=== PATIENT | female | born 1990 | race Caucasian/White ===

== ENCOUNTER 2022-10-07 11:17 | Outpatient (OUT) | payer BC, OTHER, SELFPAY ==
--- NOTE | 2022-10-07 12:05 | PM.PRESUREVA ---
History of Present Illness History of Present Illness Chief complaint: pelvic pain, endometrosis Narrative: Patient presents for preadmission testing accompanied by family. The patient states she has endometriosis and chronic pelvic pain. She denies nausea, vomiting, fever, dysuria, or hematuria. Review of Systems ROS Narrative REVIEW OF SYSTEMS: Negative except as stated in HPI, ten or more systems reviewed. Constitutional: No fever , chills, weakness ENT: No sore throat or epistaxis Cardiovascular: No edema, chest pain, palpitations, or activity intolerance Respiratory: No shortness of breath, cough, or wheezing Musculoskeletal: No joint pain or swelling Genitourinary: No dysuria or hematuria Neurological: No numbness, tingling, weakness, or headache Psychiatric: No mood changes PFSH PFS Medical History (Updated 10/07/22 @ 12:04 by Quita Wiggins NP) Surgical History (Updated 10/07/22 @ 11:52 by Quita Wiggins NP) Family History (Updated 10/07/22 @ 11:52 by Quita Wiggins NP) Other Family history of diabetes mellitus Family history of heart disease Family history of hypertension Family history of kidney cancer Family history of myocardial infarction Family history of stroke Social History (Updated 10/07/22 @ 11:45 by Quita Wiggins NP) Within the past year, how often did you have a drink containing alcohol: never Score interpretation: A score less than 3 is consistent with normal alcohol consumption. Smoking status: Never smoker Non-prescribed substance use: denies use and former substance user Previous occupational history: factory Highest level of school completed/degree received: high school graduate Meds Home Medications and Allergies Home Medications Medication Instructions Recorded Confirmed Type acetaminophen 300 mg-codeine 30 mg 1 tab PO Q8H PRN pain 10/07/22 10/07/22 History tablet buprenorphine 8 mg-naloxone 2 mg 0.5 film sublingual BID 10/07/22 10/07/22 History sublingual film liraglutide 0.6 mg/0.1 mL (18 mg/3 0.6 mg subcut Q24H 10/07/22 10/07/22 History mL) subcutaneous pen injector (Victoza 2-Joesph) mirtazapine 15 mg tablet 15 mg PO QPM PRN sleep 10/07/22 10/07/22 History olanzapine 2.5 mg tablet (Zyprexa) 2.5 mg PO DAILY 10/07/22 10/07/22 History ondansetron 4 mg disintegrating 4 mg PO Q8H PRN nausea and vomiting 10/07/22 10/07/22 History tablet quetiapine 50 mg tablet 50 mg PO QPM PRN sleep 10/07/22 10/07/22 History venlafaxine 37.5 mg 37.5 mg PO QDAY 10/07/22 10/07/22 History capsule,extended release 24 hr venlafaxine 75 mg capsule,extended 75 mg PO QDAY 10/07/22 10/07/22 History release 24 hr Allergies Allergy/AdvReac Type Severity Reaction Status Date / Time No Known Drug Allergies Allergy Verified 10/07/22 11:32 Exam Narrative Exam Narrative: Constitutional: Awake, alert, comfortable, well-appearing, nontoxic, interactive, vital signs as charted Head: Normocephalic, atraumatic Neck: Supple, normal appearance, normal range of motion, no meningeal signs, no lymphadenopathy Respiratory: No respiratory distress, breath sounds clear Cardiovascular: Regular rate and rhythm, strong and regular heart tones Abdomen: Nontender, normal bowel sounds, soft, no CVA tenderness Musculoskeletal: Normal gait, no swelling or edema Skin: No rashes or induration, no lesions, only visible skin inspected Neuro: No neurological deficits, normal sensation Psychiatric: Oriented ?3, normal affect Assessment and Plan Assessment and Plan (1) Dysmenorrhea: (2) Endometriosis: (3) Pelvic pain: Plan Da Tin-assisted laparoscopic hysterectomy, possible exploratory laparotomy, possible bilateral salpingo-oophorectomy, possible cystoscopy scheduled with Dr. Anderson 10/22/2022.
[2022-10-07 12:25] LABS: Basophils Percent Auto 0.4 % (0.2-2.0); Eosinophils Absolute Auto 0.2 10^3/uL (0.0-0.7); Eosinophils Percent Auto 2.8 % (0.9-7.0); Hematocrit 38.1 % (36.0-48.0); Immature Granulocytes Abs Auto 0.02 10^3/uL (0.00-0.03); Immature Granulocytes Pct Auto 0.3 % (0.0-0.5); Lymphocytes Absolute Auto 1.6 10^3/uL (1.2-3.8); Lymphocytes Percent Auto 21.9 % (20.5-60.0); Mean Corpuscular HGB Conc 31.5 g/dL (29.9-35.2); Monocytes Absolute Auto 0.7 10^3/uL (0.3-0.8); Monocytes Percent Auto 9.6 % (1.7-12.0); Neutrophils Absolute Auto 4.7 10^3/uL (1.4-6.5); Platelet Count 353 10^3/uL (150-450); Red Blood Count 5.01 10^6/uL (4.20-5.40); Red Cell Distribution Width 15.6 % (11.0-15.0); White Blood Count 7.2 10^3/uL (4.0-11.0)
[2022-10-07 12:45] LABS: INR 0.97; Partial Thromboplastin Time 28.7 sec (22.3-36.2); Prothrombin Time 10.3 sec (9.0-11.6)
[2022-10-07 13:25] LABS: Alanine Aminotransferase 32 U/L (14-59); Albumin Level 3.9 g/dL (3.4-5.0); Alkaline Phosphatase 62 U/L (46-116); Anion Gap 11.5; Aspartate Amino Transferase 22 U/L (15-37); BUN Creatinine Ratio 9.3; Bilirubin Direct 0.1 mg/dL (0.0-0.2); Bilirubin Total 0.3 mg/dL (0.2-1.0); Calcium 8.9 mg/dL (8.5-10.1); Carbon Dioxide 29.5 mmol/L (21.0-32.0); Chloride 103 mmol/L (98-107); Estimated GFR (African America >60 (>=60); Estimated GFR (Non-African Ame >60 (>=60); Glucose 96 mg/dL (74-106); Sodium 140 mmol/L (136-145); Total Protein 7.9 g/dL (6.4-8.2)
== END 2022-10-07 11:18 | disposition home or self-care (01) ==
PROVIDERS: Visit Provider Obstetrics & Gynecology
DX: Z01.812 Encounter for preprocedural laboratory examination (principal); N80.9 Endometriosis, unspecified; R10.2 Pelvic and perineal pain; N94.6 Dysmenorrhea, unspecified
CPT/HCPCS: 80048; 80076; 85025; 85610; 85730; 86850; 86900; 86901; G0463

== ENCOUNTER 2022-10-20 10:48 | Outpatient (OUT) | payer BC, OTHER, SELFPAY | END 2022-10-20 10:49 | disposition home or self-care (01) | LOC: LAB 10-28 10:48 | PROVIDERS: Visit Provider Obstetrics & Gynecology | DX: Z01.812 Encounter for preprocedural laboratory examination (principal); N80.9 Endometriosis, unspecified; R10.2 Pelvic and perineal pain; N94.6 Dysmenorrhea, unspecified | CPT/HCPCS: 36415; 86850; 86900; 86901 ==

== ENCOUNTER 2022-10-22 11:11 | Day surgery (SDC) | payer BC, OTHER, SELFPAY ==
[2022-10-07 12:02] VITALS: BP 106/66; PULSE 70; RESP 18; TEMP 36.4; O2SAT 96; BMI 40.8
[2022-10-22] VITALS (11 sets, daily range): BP systolic 78–130; BP diastolic 43–70; PULSE 62–86; RESP 14–26; TEMP 36.2–36.7; O2SAT 90–100; BMI 40.4
[2022-10-22 11:19] LABS: Basophils Percent Auto 0.4 % (0.2-2.0); Eosinophils Absolute Auto 0.2 10^3/uL (0.0-0.7); Eosinophils Percent Auto 1.6 % (0.9-7.0); Hematocrit 40.2 % (36.0-48.0); Hemoglobin 12.4 g/dL (12.0-16.0); Immature Granulocytes Abs Auto 0.03 10^3/uL (0.00-0.03); Immature Granulocytes Pct Auto 0.3 % (0.0-0.5); Lymphocytes Absolute Auto 1.6 10^3/uL (1.2-3.8); Lymphocytes Percent Auto 17.3 % (20.5-60.0); Mean Corpuscular HGB Conc 30.8 g/dL (29.9-35.2); Mean Corpuscular Volume 77.9 fL (81.0-99.0); Mean Platelet Volume 8.9 fL (9.5-13.5); Monocytes Absolute Auto 0.6 10^3/uL (0.3-0.8); Monocytes Percent Auto 6.3 % (1.7-12.0); Neutrophils Absolute Auto 6.9 10^3/uL (1.4-6.5); Neutrophils Percent Auto 74.1 % (43.0-75.0); Platelet Count 432 10^3/uL (150-450); Red Blood Count 5.16 10^6/uL (4.20-5.40); White Blood Count 9.3 10^3/uL (4.0-11.0)
[2022-10-22 11:38] LABS: HCG Quantitative <1 mIU/mL
[2022-10-22] MEDS: LACTATED RINGER'S SOLUTION 1,000 ML 50 ML IV ×2 (11:41→15:46)
[2022-10-22] MEDS: CEFAZOLIN SODIUM/DEXTROSE,ISO 2 GM/50 ML PIGGYBACK IV ×2 (12:40→18:03)
[2022-10-22] MEDS: LACTATED RINGER'S SOLUTION 1,000 ML 1000 ML IV (14:25)
--- NOTE | 2022-10-22 16:03 | PM.ONB ---
Brief Operative Note Date of procedure: 10/22/22 Pre-op diagnosis: menorrhagia, dysmenorrhea, dyspareunia, pelvic pain Post-op diagnosis: same as pre-op Procedure: NAME OF PROCEDURE: ? Robotic assisted laparoscopic hysterectomy with cystoscopy, bilateral salpingectomy PROCEDURE:? The patient was taken back to the operating room, where she was prepped and draped in the normal sterile fashion after being placed in the dorsal lithotomy position.? Patient?s anesthesia was found to be adequate.? Surgical timeout was performed using two patient identifiers.? SCDs were on and in place.? Two grams of Ancef were given prior to the surgery.? Sterile Kerr catheter was inserted.? Standard size VCare was secured to the uterine cervix and the surgeon changed gloves.? Attention then was turned to the patient's abdomen, where a supraumbilical incision was then made.? Two S retractors were used to identify the patient?s fascia.? The fascia was then tented up using Tony clamps and the patient?s fascia was incised sharply.? Patient?s abdomen was identified and entered bluntly.? The patient had the trocar placed and a pneumoperitoneum was obtained.? Approximately 4 liters of CO2 gas was used.? The camera was then placed through the trocar.? At this time, two robot trocars were placed in the patient?s left and right side, two hand widths from the midline, and this was placed under direct visualization.? The patient?s tube on the right side was tented up and the vessel sealer was then used to come across the mesosalpinx, and this was carried down to the uterine ovarian ligament.? The vessel sealer was carried down serially to the broad ligament, to the area of the bladder flap, which was then created anteriorly, and the uterine arteries were skeletonized and sealed using the vessel sealer.? The colpotomy was made using the monopolar cautery on cut, and this was carried circumferentially, posteriorly to anteriorly, until the uterus was amputated.? The specimen was then removed intact through the vagina, without difficulty.? The vagina was then closed using two running V-Loc in a non-lock fashion.? The robot was undocked.? The abdomen was desufflated.? The skin defects were closed using 4-0 Vicryl.? Please note, the fascia was closed using 0 Vicryl.? Sponge, lap and needle counts were correct x2.? Patient was taken to recovery room in stable condition.? The patient was awakened by Anesthesia first.? Patient tolerated procedure well.??Please note left ovarian cystectomy was performed using the vessel sealer Anesthesia: VERONIQUE Surgeon: David Anderson Continuous Improvement Coach: Ingrid Elizabeth Estimated blood loss (mL): 100 Pathology: other (uterus, tubes and cervix) Condition: stable Disposition: PACU
[2022-10-23] MEDS: CEFAZOLIN SODIUM/DEXTROSE,ISO 2 GM/50 ML PIGGYBACK IV (00:57)
[2022-10-23] MEDS: SIMETHICONE 80 MG TAB.CHEW PO (00:57)
[2022-10-23] MEDS: LACTATED RINGER'S SOLUTION 1,000 ML 50 ML IV (01:04)
[2022-10-23 04:43] LABS: Basophils Percent Auto 0.2 % (0.2-2.0); Eosinophils Percent Auto 0.1 % (0.9-7.0); Hematocrit 33.9 % (36.0-48.0); Hemoglobin 10.3 g/dL (12.0-16.0); Immature Granulocytes Abs Auto 0.06 10^3/uL (0.00-0.03); Immature Granulocytes Pct Auto 0.5 % (0.0-0.5); Lymphocytes Absolute Auto 1.1 10^3/uL (1.2-3.8); Lymphocytes Percent Auto 8.6 % (20.5-60.0); Mean Corpuscular HGB Conc 30.4 g/dL (29.9-35.2); Mean Corpuscular Hemoglobin 23.9 pg (26.7-34.0); Mean Corpuscular Volume 78.7 fL (81.0-99.0); Mean Platelet Volume 10.1 fL (9.5-13.5); Monocytes Absolute Auto 0.9 10^3/uL (0.3-0.8); Monocytes Percent Auto 6.9 % (1.7-12.0); Neutrophils Percent Auto 83.7 % (43.0-75.0); Platelet Count 260 10^3/uL (150-450); Red Blood Count 4.31 10^6/uL (4.20-5.40); Red Cell Distribution Width 15.9 % (11.0-15.0); White Blood Count 13.1 10^3/uL (4.0-11.0)
[2022-10-23 05:24] VITALS: BP 108/70; PULSE 67; RESP 18; TEMP 36.7; O2SAT 90
[2022-10-23] MEDS: DOCUSATE SODIUM 100 MG CAPSULE PO (08:00)
[2022-10-23] MEDS: MAGNESIUM HYDROXIDE 2,400 MG/10 ML ORAL.SUSP 2400 MG PO (08:00)
== END 2022-10-23 09:17 | disposition home or self-care (01) ==
LOC: SURGOUT 16:08 → MS 16:31
PROVIDERS: Visit Provider Obstetrics & Gynecology
PROC: (CPT 58573; principal; 2022-10-22 12:30)
DX: N92.0 Excessive and frequent menstruation with regular cycle (principal); N94.6 Dysmenorrhea, unspecified; N94.10 Unspecified dyspareunia; R10.2 Pelvic and perineal pain; E66.01 Morbid (severe) obesity due to excess calories; Z68.41 Body mass index [BMI] 40.0-44.9, adult; Z79.899 Other long term (current) drug therapy; F41.9 Anxiety disorder, unspecified; N80.9 Endometriosis, unspecified; J45.909 Unspecified asthma, uncomplicated
CPT/HCPCS: 58573; 36415; 84702; 85025; 88307; 94667; J2704